=== PATIENT | female | born 1965 | race Caucasian/White ===

== ENCOUNTER 2022-06-22 09:29 | Outpatient (CLI) | payer OTHER, SELFPAY ==
[2022-06-22 23:02] LABS: Hemoglobin A1C 5.5 % (<5.7)
== END 2022-06-22 09:30 | disposition home or self-care (01) ==
LOC: ANHGOSHLAB 09:30
PROVIDERS: PCP Family Medicine; Visit Provider Family Medicine
DX: R73.01 Impaired fasting glucose (principal)
CPT/HCPCS: 36415; 83036

== ENCOUNTER → 2022-06-22 09:38 | Outpatient (CLI) | payer OTHER, SELFPAY ==
--- NOTE | ~2022-06-22 | XR_ITS ---
Right Hand Technique: PA, oblique, and lateral views were obtained. Clinical History: Effusion Findings: No acute fracture or dislocation is seen. Osseous alignment is anatomic. There is mild dege nerative change of the first CMC joint. Soft tissues are unremarkable. Impression: No fracture or dislocation. Mild degenerative change at the first CMC joint. Reviewed, dictated and finalized at location . E [employer] STRATEGIST Impression: No fracture or dislocation. Mild degenerative change at the first CMC joint.
== END ==
PROVIDERS: PCP Family Medicine; Visit Provider Family Medicine
DX: M25.441 Effusion, right hand (principal); M19.041 Primary osteoarthritis, right hand
CPT/HCPCS: 73130

== ENCOUNTER 2023-01-25 14:15 | Outpatient (CLI) | payer OTHER, SELFPAY ==
[2023-01-25 20:18] LABS: Vitamin D 25 Hydroxy 39.1 ng/mL
[2023-01-25 21:39] LABS: Hemoglobin A1C 5.6 % (<5.7)
== END 2023-01-25 14:16 | disposition home or self-care (01) ==
LOC: ANHGOSHLAB 14:16
PROVIDERS: PCP Family Medicine; Visit Provider Family Medicine
DX: R53.1 Weakness (principal); Z13.29 Encounter for screening for other suspected endocrine disorder; E53.8 Deficiency of other specified B group vitamins; E55.9 Vitamin D deficiency, unspecified; R73.01 Impaired fasting glucose
CPT/HCPCS: 36415; 82306; 82607; 83036; 84443

== ENCOUNTER 2023-03-27 01:20 | Day surgery (SDC) | payer OTHER, SELFPAY ==
[2023-03-15 09:05] VITALS: BMI 17.9
--- NOTE | 2023-03-23 14:09 | SUR.PREOP ---
Patient called regarding upcoming procedure. Message left on patient's voicemail regarding preop instructions, appointment times, and procedure prep.
[2023-03-27 08:11] VITALS: BP 126/67; PULSE 82; RESP 18; TEMP 36.3; O2SAT 99
[2023-03-27] MEDS: LACTATED RINGERS 1,000 ML 150 ML IV CONT (08:16)
--- NOTE | 2023-03-27 09:25 | PM.HPGS ---
History of Present Illness History of Present Illness Consent: Risks, benefits, and alternatives have been discussed and questions answered. Patient agrees to proceed with procedure. Chief complaint: neoplasm screening Narrative: Bette Ritchie is a 57 year old female here for first screening colonoscopy Review of Systems Constitutional: Constitutional: Denies headache(s) and Denies weakness Eyes: Eyes: Denies blurry vision ENT: Reports Normal hearing present, Denies headache(s) and Denies neck pain Cardiovascular: Cardiovascular: Denies chest pain and Denies dyspnea Respiratory: Respiratory: Denies dyspnea Gastrointestinal: Gastrointestinal: Reports no additional gastrointestinal complaints Genitourinary: Genitourinary: Denies dysuria Musculoskeletal: Musculoskeletal: Denies neck pain Integumentary/Breasts: Skin/Breast: Denies dry skin Neurologic: Reports Normal hearing present, Denies headache(s) and Denies weakness Psychiatric: Psychiatric: Denies anxiety Endocrine: Endocrine: Denies change in body appearance Hematologic/Lymphatic: Hematologic/Lymphatic: Denies easy bleeding Allergic/Immunologic: Allergic/Immunologic: Denies urticaria [facility] Past Medical History Medical History (Updated 03/27/23 @ 09:26 by Aron Dawkins MD) Colon cancer screening Dyslipidemia Surgical History Surgical History History of tubal ligation (~1989) History of vaginal delivery 1982 and 1984 Family History Family History Mother Hypertension Family history of Alzheimer's disease Family history of dementia Grandparent Family history of cardiovascular disease Father Family history of malignant neoplasm Social History Social History Smoking packs per day: 1 Smoking cigarettes per day: 20.0 Years smoked: 24 Smoking pack-years: 24.00 Smoking status: Current every day smoker Tobacco type: cigarettes Alcohol intake: current Drinks per week: 10 Alcohol use details: beer Substance use: never Substance use type: does not use Lack of Transportation: No Lack of Food: Never True Current Housing: I Have Housing Concerned About Future Housing: No Difficulty Paying Gas/Electric Bills: No Difficulty Paying for Meds: No Currently Unemployed: No Education: High School Diploma/GED Difficulty w/ Childcare or Family Care: No Living arrangements: with family Spiritual care concerns: No Meds Home Medications and Allergies Home Medications Medication Instructions Recorded Confirmed Type No Home Medications 03/15/23 03/15/23 History Allergies Allergy/AdvReac Type Severity Reaction Status Date / Time No Known Allergies Allergy Verified 03/27/23 08:10 Vital Signs Vital Signs - 24 hr 03/27/23 08:11 Temperature 97.3 F L Pulse Rate 82 Respiratory Rate 18 Blood Pressure 126/67 Pulse Oximetry 99 Oxygen Delivery Room Air Exam Const: General: comfortable and no acute distress HENMT: Face/Nose/Sinus: Normal nares present Eyes: General: appearance normal, both eyes and all related structures Neck: Neck: no JVD Resp: Auscultation: clear to auscultation bilaterally Cardio: Rate: regular rate Rhythm: regular rhythm GI: Inspection: non-distended GI Palp: Yes Soft to palpation Skin: General skin exam: normal color Neuro: General: gait normal Speech: normal speech Extrem: General: normal to inspection Psych: Mental Status: mental status grossly normal Assessment and Plan Assessment and plan (1) Colon cancer screening: Code(s): Z12.11 - Encounter for screening for malignant neoplasm of colon Status: Acute Assessment and Plan: colonoscopy
--- NOTE | 2023-03-27 09:30 | P.PNAN_ITS ---
Anes - Initial Pre Proc Eval Procedure: Operation Date: 03/27/23 09:30 Proposed Procedures p Screening Colonoscopy - Aron Dawkins MD Date/Time: 03/27/23 09:30 Surgeon: Aron Dawkins MD Pre Op Diagnosis: neoplasm screening Patient Data Age: 57 Gender: F Height: 1.6 m Weight: 44.3 kg Last Vital Signs Temp 97.3 F L 03/27/23 08:11 Pulse 82 03/27/23 08:11 Resp 18 03/27/23 08:11 BP 126/67 03/27/23 08:11 Pulse Ox 99 03/27/23 08:11 O2 Del Method Room Air 03/27/23 08:11 Allergies Allergy/AdvReac Type Severity Reaction Status Date / Time No Known Allergies Allergy Verified 03/27/23 08:10 Home Medications Medication Instructions Recorded Confirmed Type No Home Medications 03/15/23 03/15/23 History Patient hx anesthesia problems: none Family hx anesthesia problems: none Results Review: All pre-operative results and documents have been reviewed as part of the pre- operative evaluation. [facility] Past Medical History Medical History (Updated 03/27/23 @ 09:26 by Aron Dawkins MD) Colon cancer screening Dyslipidemia Surgical History Surgical History History of tubal ligation (~1989) History of vaginal delivery 1982 and 1984 Family History Family History Mother Hypertension Family history of Alzheimer's disease Family history of dementia Grandparent Family history of cardiovascular disease Father Family history of malignant neoplasm Social History Social History Smoking packs per day: 1 Smoking cigarettes per day: 20.0 Years smoked: 24 Smoking pack-years: 24.00 Smoking status: Current every day smoker Tobacco type: cigarettes Alcohol intake: current Drinks per week: 10 Alcohol use details: beer Substance use: never Substance use type: does not use Lack of Transportation: No Lack of Food: Never True Current Housing: I Have Housing Concerned About Future Housing: No Difficulty Paying Gas/Electric Bills: No Difficulty Paying for Meds: No Currently Unemployed: No Education: High School Diploma/GED Difficulty w/ Childcare or Family Care: No Living arrangements: with family Spiritual care concerns: No Anes - Eval Final PreProcedure Day of Procedure 03/27/23 09:30 Patient weight: normal Heart: regular rate and rhythm Lungs: clear to auscultation Airway: Mallampati scale class II Neurological: alert and oriented Last oral intake: >/= 8 hours ASA classification: II Emergent: no Anesthetic plan: proceed Anesthesia type and monitoring: general GIVS and standard monitoring Results Review: All pre-operative results and documents have been reviewed as part of the pre- operative evaluation. Informed Consent: The patient's anesthetic plan and its attendant risks and benefits were discussed with the patient/family/POA. Questions were solicited and answers provided to the satisfaction of the patient/family/POA.
[2023-03-27 09:50] VITALS: BP 92/58; PULSE 66; RESP 20; O2SAT 97
[2023-03-27 10:00] VITALS: BP 102/60; PULSE 60; RESP 18; O2SAT 100
[2023-03-27 10:10] VITALS: BP 121/68; PULSE 54; RESP 18; O2SAT 100
== END 2023-03-27 10:18 | disposition home or self-care (01) ==
PROVIDERS: PCP Family Medicine; Visit Provider Internal Medicine Gastroenterology
PROC: 0DJD8ZZ Inspection of Lower Intestinal Tract, Via Natural or Artificial Opening Endoscopic (ICD-10-PCS; CPT 45378; principal; 2023-03-27 09:30)
DX: Z12.11 Encounter for screening for malignant neoplasm of colon (principal); D12.3 Benign neoplasm of transverse colon; D12.0 Benign neoplasm of cecum; D12.2 Benign neoplasm of ascending colon; K57.30 Diverticulosis of large intestine without perforation or abscess without bleeding; K64.8 Other hemorrhoids; F17.210 Nicotine dependence, cigarettes, uncomplicated
CPT/HCPCS: 45385; 88305; J2704; J7120

== ENCOUNTER 2024-03-07 14:17 | Outpatient (CLI) | payer OTHER, SELFPAY ==
--- NOTE | ~2024-03-07 | DEXA_ITS ---
Bone Density Report Name: PRERNA COTTON Age: 58 Sex: Female Ethnicity: White Date of : 1965 Indication: postmenopausal; screening for osteoporosis; height loss; Referring Provider: JAMIE, GABRIELA Pritchard Study: Bone densitometry was performed. Exam Date: March 07, 2024 Accession number: [id number] Bone Density: Region BMD T-score Z-score Classification AP Spine(L1-L4) 0.849 -1.8 -0.4 Osteopenia Femoral Neck (Left) 0.643 -1.9 -0.6 Osteopenia Total Hip (Left) 0.883 -0.5 0.4 Normal Femoral Neck (Right) 0.581 -2.4 -1.1 Osteopenia Total Hip (Right) 0.796 -1.2 -0.3 Osteopenia Total Hip Mean 0.840 -0.9 0.1 Normal World Health Organization criteria for BMD impression classify patients as: Normal (T-score at or above -1.0), Osteopenia (T-score between -1.0 and -2.5), or Osteoporosis (T-score at or below -2.5). 10-year Fracture Risk(1): Major Osteoporotic Fracture 9.9% Hip Fracture 2.8% Reported Risk Factors: [place] (), Neck BMD=0.581, BMI=19.4, smoking (1) FRAX(R) Version 3.08. Fracture probability calculated for an untreated patient. Fracture probability may be lower if the patient has received treatment. Clinical Information Provided by Patient: Smokes Has used the following medications: Vitamin D Patient maximum height was 63 Menopause Age: 47 No regular weight bearing exercise Does not regularly consume dairy products Drinks caffeinated beverages Onset of menses at age 12 Number of children 2 Impression: The patient has low bone mass, based on the Right Femoral Neck T-score. The patient has an estimated ten-year risk of hip fracture of 2.8% and an estimated ten-year risk of major fracture of 9.9%, based on the WHO FRAX algorithm. The patient has risk factors, including: smoking. Discussion: BONE DENSITY IS LOW AT ONE OR MORE SKELETAL SITES. This patient's lowest T-score is low at one or more skeletal sites. It meets the World Health Organization's (WHO) criteria for ?low bone mass? (T-score between -1.0 and -2.5). The patient's 10-year risk of fracture as calculated by FRAX is less than the threshold where pharmacological therapy is recommended by the National Osteoporosis Foundation (NOF). However, all treatment decisions require clinical judgment and consideration of individual patient factors, including patient preferences, comorbidities, previous drug use, risk factors not captured in the FRAX model (e.g., frailty, falls, vitamin D deficiency, increased bone turnover, interval significant decline in bone density) and possible under or overestimation of fracture risk by FRAX. The patient should follow a healthful lifestyle (good nutrition with adequate calcium and vitamin D, and appropriate weight-bearing exercise). Follow-Up: Consider repeating this study in 2 to 3 years to reassess this patient's status, or sooner if there is some new clinical indication. Reported by: MARCIE on 03/07/2024 2:51:00 PM. Reviewed, dictated and finalized at location AJudie RYDER
== END 2024-03-07 14:18 | disposition home or self-care (01) ==
LOC: ANHIMG 14:22
PROVIDERS: PCP Family Medicine; Visit Provider Nurse Practitioner
DX: M85.89 Other specified disorders of bone density and structure, multiple sites (principal); Z78.0 Asymptomatic menopausal state; Z13.820 Encounter for screening for osteoporosis
CPT/HCPCS: 77080

== ENCOUNTER 2024-12-09 15:48 | Outpatient (CLI) | payer OTHER, SELFPAY ==
--- NOTE | ~2024-12-09 | XR_ITS ---
XR knee LT min 4V 12/09/2024 16:28 Indication: Left knee pain for one week Procedure: 4 views left knee Comparison: No prior studies for comparison. Findings: Small joint effusion. Mild osteoarthritis of the left patellofemoral compartment. No fracture, subluxation or dislocation. There is a questionable osteochondral defect of the distal aspect of the femur along the inferior margin of the patellofemoral compartment on the lateral view. Impression: 1: Possible osteochondral defect distal aspect of the femur anteriorly. Reviewed, dictated and finalized at location O. Impression: 1: Possible osteochondral defect distal aspect of the femur anteriorly.
== END 2024-12-09 15:49 | disposition home or self-care (01) ==
PROVIDERS: PCP Family Medicine; Visit Provider Family Medicine
DX: M25.562 Pain in left knee (principal)
CPT/HCPCS: 73564

== ENCOUNTER 2025-02-17 09:18 | Outpatient (CLI) | payer OTHER, SELFPAY ==
--- NOTE | ~2025-02-17 | MR_ITS ---
EXAMINATION: MR knee LT wo con DATE: 02/17/2025 09:51 INDICATION: Anterior left knee pain. Osteochondral defect at the distal left femur. TECHNIQUE: Magnetic resonance imaging (MRI) of the left knee was performed without intravenous contrast. Sequences included coronal PD-weighted FSE, coronal PD-weighted FS FSE, sagittal T2-weighted FSE, sagittal PD-weighted FS FSE and axial PD weighted fat saturated FSE. COMPARISON: None. FINDINGS: Medial compartment: Medial meniscus is normal. Again seen is an osteochondral lesion along the lateral side of the anterior weightbearing medial femoral condyle with displacement of the osteochondral fragment leaving a 6 mm deep defect involving the medial two thirds of the anterior weightbearing medial femoral condyle. The defect measures 2.1 cm AP and 1.6 cm medial to lateral. The loose fragment which measures 1.8 x 1.3 x 0.4 cm is positioned in the recess anterior to the intercondylar notch positioned between the tibial footplate of the anterior cruciate ligament and the anterior intermeniscal ligament. Partial-thickness chondral ulceration and fissuring along the anterior aspect of the medial tibial plateau with mild underlying subarticular edema-like signal change. Lateral compartment: Lateral meniscus is normal. Articular cartilage is normal. Patellofemoral compartment: Articular cartilage is normal. Ligaments and tendons: Anterior and posterior cruciate ligaments are normal. The medial collateral ligament and fibular collateral ligament complex are normal. The extensor mechanism is normal. The visualized medial and lateral hamstring tendons as well as the iliotibial band are normal. Fluid: Minimal left knee joint effusion. There are few small loose bodies within a small Pope's cyst which measures 3.5 x 2.0 x 1.4 cm. Osseous/other: Aside from the displaced osteochondral fragment there are no other fractures or pathologic marrow replacing process. IMPRESSION: 1. 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 2. Mild osteoarthritis at the medial compartment with small region of high-grade chondromalacia along the anterior aspect medial tibial plateau. 3. Minimal left knee joint effusion and small Pope's cyst. Reviewed, dictated and finalized at location A. KSHAFT BALANCER IMPRESSION: 1. Chronic osteochondritis dissecans with displacement of a relatively large os teochondral fragment arising from the medial aspect of the anterior weightbeari ng medial femoral condyle with a fragment position anterior to the intercondyla r notch. 2. Mild osteoarthritis at the medial compartment with small region of high-grad e chondromalacia along the anterior aspect medial tibial plateau. 3. Minimal left knee joint effusion and small Pope's cyst.
== END 2025-02-17 09:19 | disposition home or self-care (01) ==
LOC: MICIMG 09:19
PROVIDERS: PCP Family Medicine; Visit Provider Physician Assistant Surgical
DX: M95.8 Other specified acquired deformities of musculoskeletal system (principal); M93.262 Osteochondritis dissecans, left knee; M17.12 Unilateral primary osteoarthritis, left knee; M94.262 Chondromalacia, left knee
CPT/HCPCS: 73721

== ENCOUNTER 2025-03-24 10:48 | Outpatient (CLI) | payer OTHER, SELFPAY ==
--- NOTE | 2025-03-24 11:44 | ECG_ITS ---
Test Date: 2025-03-24 11:51:09 Measurements Intervals [place] Rate: 92 P: 82 MI: 128 QRS: 37 QRSD: 90 T: 48 QT: 353 QTc: 437 Interpretive Statements SINUS RHYTHM POSSIBLE LEFT ATRIAL ENLARGEMENT INCOMPLETE RIGHT BUNDLE BRANCH BLOCK BASELINE ARTIFACT- I, II, III, AVR, AVL, AVF, V1-V6 BORDERLINE ECG No previous ECG available for comparison Electronically Signed On 03-24-2025 12:04:47 MENTAL HEALTH AIDE by Quang Palomares D.O.
== END 2025-03-24 10:49 | disposition home or self-care (01) ==
LOC: ANHSURGERY 11:19
PROVIDERS: PCP Family Medicine; Visit Provider Orthopaedic Surgery
DX: I10 Essential (primary) hypertension (principal); Z01.818 Encounter for other preprocedural examination; I45.10 Unspecified right bundle-branch block
CPT/HCPCS: 93005

== ENCOUNTER 2025-03-26 01:39 | Day surgery (SDC) | payer OTHER, SELFPAY ==
[2025-03-23 09:32] VITALS: BMI 22.6
--- NOTE | 2025-03-23 09:39 | PC.NURSE ---
[facility] has started construction of its new state of the art ER which will open Spring 2026. With this, we anticipate parking may be a challenge for some our surgical patients and families. Parking spaces are limited but are available for all Surgical, obstetrics, and ER patients sharing this lot. If you arrive and find you are having a hard time finding a parking space, please note that we understand the challenges, please drive around the hospital and park near Hospital Entrance 1. When you enter this entrance, you can ask a volunteer to direct or take you back to the surgical waiting area to check in. We appreciate everyone?s understanding of these expected challenges while we build for your future. Report to the Outpatient Waiting Room, entrance under the green pavilion located off [address], at time _1130_ on date __03/26/25. Planned Procedure Time: 1330_.? Time changes happen often and if your time is changed the preop area will call you the afternoon before. - You and your visitor will be asked to self-screen and do not enter if you have any COVID symptoms. Please call surgeon if you need to reschedule. - A mask is optional within the hospital at this time. Patients may have clear liquids (water, carbonated beverages, clear teas, apple juice) until 3 hours prior to surgery with a maximum of 20 ounces. - No food from midnight until time of surgery and no smoking, or chewing tobacco (or any form of nicotine). No chewing gum, candy or mints. Take only the following medications with a SIP of water on the morning of surgery: ____AMLODIPINE DO NOT STOP ANY OF YOUR OTHER PRESCRIPTION MEDICATIONS PRIOR TO SURGERY EXCEPT THE FOLLOWING Hold all vitamins and supplements for 3 days per anesthesiologist. Medications to discontinue per physician Date to take last dose Please no make-up, nail kiswahili, hairspray, perfume, deodorant, or body powder the day of surgery.? No jewelry (including any body piercings) or valuables the day of surgery, leave them at home.? Please take a shower or bath the night before, or the morning of, surgery with an antibacterial soap.? Wear comfortable, loose fitting clothing.? Children are encouraged to wear pajamas. - Jewelry must be removed prior to entering the operating room.? Rings and piercings that are not removed may be cut off. - The hospital will not accept responsibility for valuables.? - Please leave all valuables, including medications, at home the day of surgery. If you are going home after surgery, a licensed minibus driver must drive you home.? - NO public transportation without another adult if you receive anesthesia. - We recommend that an adult stay with you for 24 hours following discharge. - We also recommend that you do not drive, make important decision, drink alcoholic beverages, or take any drugs that were not prescribed by your health care provider for at least 24 hours after your discharge time. For Pediatric surgeries, we recommend two adults accompany the child home. Follow any additional instructions given to you from your surgeon. Telephone instructions given to PATIENT_and asked if any additional questions and then verbalized understanding. Patient advised to call surgeon office or pre surgery nurse liaison [phone] if any additional questions.
[2025-03-26] VITALS (7 sets, daily range): BP systolic 123–140; BP diastolic 56–79; PULSE 76–83; RESP 12–20; TEMP 36.4–36.9; O2SAT 96–100; BMI 21.9
--- OUTSIDE RECORDS SUMMARY | 2025-03-26 01:41 | XMS_ITS | Data Portability ---
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 Patient will come back in a year unless there are new symptoms. Not available 09/14/2022 11:41:57 10/23/2023 10/23/2023 Annual gynecological exam performed. Patient will come back in a year unless there are new symptoms. [email or web address] Not available 10/23/2023 11:49:33 Plan of Treatment Reminders Order Date Submit Date Provider Last Modified By Organization Details Last Modified Time Details Appointments None recorded. Lab None recorded. Referral None recorded. Procedures None recorded. Surgeries None recorded. Imaging MAMMO, screening, digital, bilateral 2023 024 [facility], [address], [place], [address], 5 05:01:18 DEXA, axial skeleton + vertebral fracture assessment 2023 024 [facility], [address], [place], [address], 4 13:40:37 MAMMO, screening, bilateral 2022 023 [facility], [address], [address], [place], [address], 3 05:01:16 Medication Orders estradiol 0.01% (0.1 mg/gram) vaginal cream 2023 024 CLARA [facility]18886, [address], [place], [id number], 4 14:09:11 Vagifem 10 mcg vaginal tablet 2022 023 [email or web address] [facility] #05666, [address], [place], [id number], 4 14:05:22 Premarin 0.625 mg/gram vaginal cream [email or web address] [place] [address] [email or web address]691, [address], [place], [id number], 3 10:22:42 Patient TargetsNo targets recorded. Patient InstructionsNo instructions recorded. Reason for Referral None Reported. 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 Atrop hic cell mariluz shepherd. Elect rosalind reddy ave d by José Manuel Montez CT on 023 at 3:40 PM ----- ----- ----- ----- ----- ----- ----- ----- ----- ----- ----- ----- ----- ----- ----- ----- ----- ---- HPV RESUL TS: HPV mRNA E6/E7 : No HPV mRNA Detec jameson NOTE: This high risk HPV mRNA assay detec ts fourt een high- risk HPV types (16, 18, 31, 33, 35, 39, 45, 51, 52, 56, 58, 59, 66, 68) witho ut diffe renti ation . COMME NT: This speci men was revie wed by a Cytot echno logis t and/o r Patho logis t (as indic ated in this repor t) after evalu ation using the Thinp rep Imagi ng Syste m. CLINI TRINI INFOR MATIO N: Menst rual Statu s: LMP (if appli cable ): Clini trini Histo ry/Pr eviou s Pap: Type of Neopl ila (if appli cable ): Signi fican t Clini trini Findi ngs: Other Histo ry: Hormo álvaro (if appli cable ): PAP EDUCA MARIOLA L NOTE: The Pap Test is a scree luis test with an inher ent false negat mari rate. Liqui d-bas ed sampl ing may decre ase, but will not elimi césar, false negat mari resul ts. A negat mari resul t does not precl ude the prese nce and/o r devel opmen t of disea se, since the prese nce of abnor mal cells in the sampl e depen ds on the locat ion of the lesio n and sampl ing techn ique. Karan nued regul ar scree luis is the best metho d of cance r preve ntion . If repor jameson cytol ogic findi ng do not corre late with physi trini and/o r histo rical findi ngs, furth er inves tigat ion is recom hilario d, as clini amie marxed. Not Available [facility] (Lab) [address], [place], [address], 09/18/2022 16:44:38 03/18/20 24 03/07/2024 DEXA, axial skele ton + verte bral fract ure asses sment No observ ation record ed. [facility] [address], [place], [address], 03/20/2024 17:52:10 Result Notes None recorded. Procedures Surgical History Date Name Laterality Status Provider Name and Address Organization Details Recorded Time 3 Date of Last Pap Smear completed [facility] 10/31/2022 11:10:21 2 Tubal Ligation completed [facility] 09/14/2022 11:46:09 Imaging Results None recorded. Procedure Notes None recorded. Medical Equipment None Reported. Allergies No known drug allergies Medications Name Sig Start Date Stop Date Status Note LastModified by Organization Details LastModified Time ciclopirox 8 % topical solution APPLY ONCE DAILY TO AFFECTED NAILS. REMOVE ONCE A WEEK WITH INDONESIAN REMOVER. active Not Available Not Available No t Available estradiol 0.01% (0.1 mg/gram) vaginal cream Insert 1g vaginally at bedtime 2 times per week 2023 active Not Available Not Available Not Avai lable Premarin 0.625 mg/gram vaginal cream PLEASE SEE ATTACHED FOR DETAILED DIRECTION S 12/21 completed Not Available Not Available Not Available estradiol 10 mcg vaginal tablet INSERT 1 TABLET VAGINALLY TWICE A WEEK AT BEDTIME FOR ERI CE 10/22 completed Not Available Not Available Not Available Vitals Date Recorded Systolic And Diastolic Provider Name and Address Organization Details Last Updated DateTime 09/14/2022 122/69 mm[Hg] Brandy Deleon, [facility] [address], [place], [address], [facility] 09/14/2022 12:11:09 Date Recorded Body height Body mass index (BMI) Body weight Provider Name and Address Organization Details Last Updated DateTime 09/14/2022 160.02 cm 18.2 kg/m2 68865.01 g [facility] 09/14/2022 11:42:43 Date Recorded Body height Body mass index (BMI) Body weight Systolic And Diastolic Provider Name and Address Organization Details Last Updated DateTime 10/23/2023 160.02 cm 18.2 kg/m2 30258.01 g 133/71 mm[Hg] Kelsea Kennedyman [facility] 10/23/2023 11:53:14 Date Recorded Systolic And Diastolic Provider Name and Address Organization Details Last Updated DateTime 10/31/2022 122/82 mm[Hg] Brandy Deleon, [facility]- [address], [place], [address], [facility] 10/31/2022 18:13:14 Date Recorded Body height Body mass index (BMI) Body weight Provider Name and Address Organization Details Last Updated DateTime 10/31/2022 160.02 cm 17.9 kg/m2 24013.83 g Cristel [facility] 10/31/2022 11:09:59 Date Recorded Systolic And Diastolic Provider Name and Address Organization Details Last Updated DateTime 12/21/2022 124/71 mm[Hg] Brandy Deleon [facility]- [address], [place], [address], [facility] 12/21/2022 10:30:25 Date Recorded Body height Body mass index (BMI) Body weight Provider Name and Address Organization Details Last Updated DateTime 12/21/2022 160.02 cm 17.9 kg/m2 00539.83 g Cristel Mckinneyer [facility] 12/21/2022 10:22:24 Social History Question Answer Notes LastModified by Organizat ion Details LastModified Time Tobacco Smoking Status Current Every Day Smoker [facility] 12/21/2022 10:16:34 How Many Years Have You Consumed Alcohol? 37 Information not available 09/14/2022 Are You Blind Or Do You Have Difficulty Seeing? No Information not available 09/14/2022 What Is Your Level Of Caffeine Consumption? Moderate Information not available 09/14/2022 How Much Tobacco Do You Chew? None Information not available 09/14/2022 In The 14 Days Before Symptom Onset, Have You Had Close Contact With A Laboratory-confir med COVID-19 While That Case Was Ill? No Information not available 09/14/2022 In The 14 Days Before Symptom Onset, Have You Had Close Contact With A Person Who Is Under Investigation For COVID-19 While That Person Was Ill? No Information not available 09/14/2022 Have You Been To An Area Known To Be High Risk For COVID-19? No Information not available 09/14/2022 Are You Deaf Or Do You Have Serious Difficulty Hearing? No Information not available 09/14/2022 What Type Of Diet Are You Following? CARBOHYDRATE Information not available 09/14/2022 What Is The Highest Grade Or Level Of School You Have Completed Or The Highest Degree You Have Received? [id number] Information not available 09/14/2022 Are There Any Guns Present In Your Home? Yes Information not available 09/14/2022 Do You Use Protection During Sex? No Information not available 09/14/2022 Do You Use Your Seat Belt Or Car Seat Routinely? Yes Information not available 09/14/2022 Do You Have Smoke And Carbon Monoxide Detectors In Your Home? Yes Information not available 09/14/2022 At What Age Did You Start Smoking Tobacco? 33 Information not available 09/14/2022 How Much Tobacco Do You Smoke? 1 PPD Information not available 09/14/2022 Do You Use Sunscreen Routinely? No Information not available 09/14/2022 How Many Years Have You Smoked Tobacco? 24 Information not available 09/14/2022 Have You Used IV Drugs? No Information not available 09/14/2022 Sex: Unknown Functional Status Question Answer Note LastModified by Organizat ion Details LastModified Time Do you use any illicit or recreational drugs? No Information not available 09/14/2022 What is your level of alcohol consumption? Moderate Information not available 09/14/2022 Are you able to walk independently without assistance or assistive devices? 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 None Information not available 09/14/2022 Mental Status Question Answer Note LastModified by Organization D etails LastModified Time Do you feel stressed (tense, restless, nervous, or anxious, or unable to sleep at night)? [id number] Information not available 09/14/2022 Family History Relationship Description Onset Age of this Age Resolved Age Notes LastModified by Organization Details LastModified Time Paternal Grandmother Diabetes mellitus Not available 2022 11:42:57 Paternal Aunt Diabetes mellitus Not available 2022 11:42:57 Paternal Uncle Diabetes mellitus Not available 2022 11:42:57 Paternal Grandfather Diabetes mellitus Not available 2022 11:42:57 Medical History Condition Response Allergies (Food, seasonal, environmental ) N Other N Breast Cancer N Drug/Latex Allergies/Reactions N Blood Transfusion N Dermatologic Disorders N Lung Disease N Defects or Inherited Disease N Breast Problem N Gestational Diabetes N Hematologic disorders N Anesthesia Complications N History of STI N Deep Vein Thrombosis N Polycystic ovary syndrome N Anxiety Disorder N Autoimmune disease N Arthritis Y Infertility N Polyps N Acid Reflux (GERD) N History of abnormal pap N Cancer N Stroke N Varicosities N Neurologic/Epilepsy N Endometriosis N High Cholesterol N Headaches N Fibromyalgia N Kidney Disease N Heart Problems N Kidney or Bladder Problems N Thyroid Problems N GI Problems N Eating Disorder N Anemia N Art (IVF or FET) N Psychiatric Illness N Ovarian Cancer N Diabetes N Pulmonary (TB, Asthma) N Hepatitis/Liver Disease N No Past Medical History N Eczema N Urinary Tract Infection N Abuse/Domestic Violence N Asthma N Trauma/Violence N Depression/ depression N Heart Disease N Pre-Eclampsia N Hypertension N Osteoporosis N Thrombophilias N Gynecological History Statement/Question Response Abnormal Pap N Date of Last Mammogram On BCP's at Conception? N N STIs/STDs N HPV Vaccine N Colposcopy Current Control Method Menopause Age at First Child 19 If Post Menopausal, Age at Menopause 47 Date of Last Colonoscopy Sexually Active? Y Menses Monthly N Date of DEXA bone scan Age of first menstrual cycle 12 Date of Last Pap Smear 09/14/2022 Sexual Problems? N LMP Unknown N Obstetrics History GPAL:G 2 P 2 0 0 2 Type Value Full Term 2 Living 2 Total 2 Past Encounters Encounter ID Performer Location Encounter Start Date Encounter Closed Date Diagnosis/Indication Diagnosis SNOMED-CT Code Diagnosis ICD10 Code Diagnosis IMO Codes Diagnosis Note [id number] Brandy Deleon [facility] [address] [address] 09/14/2022 11:31:59 09/14/2022 12:17:22 Gynecologic examination 70238923 Z01.419 Take Calcium with Vitamin D 12-1500mg daily. Do monthly self breast exams. It is advised to get annual flu shot in the fall and she could obtain at [facility] or [facility]. If you haven't received the Tdap vaccine in the last 10 years you should obtain one as well. Have mammogram yearly, bone density every 2-3 years and colonoscop y every 5-10 years depending on findings and history. Engage in daily exercise of low impact aerobic exercise 45-60 minutes 4-5 times weekly. Avoid tobacco and illicit drugs as well as using moderation with alcohol intake less than 1-2 8 oz beverages daily. This lifestyle behavior pattern will lead to less health conditions and longer life span. If BMI greater than 25 weight watchers or dietary consult advised. Questions have been answered. Patient appears to understand instructio ns, but if you have any further questions call or respond to this email Pap/hpv sent STD Screen declined Genetic Screen discussed Colon Screen PCP Dexa Screen PCP Routine Labs PCP Screening mammography [address] anderson on intercourse 029248166 N89.8 Counseled on the following: Vaginal Dryness: Bothersome symptoms of the vagina and vulva (outer lips of the vagina) increase during and after the menopause transition or may start several years after menopause. The decrease in estrogen with menopause is a major contributo r to vaginal dryness, itching, burning, discomfort , and pain during intercours e or other sexual activity. Vaginal atrophy is the medical term that describes these changes. The genitourin abhi syndrome of menopause includes bothersome vaginal atrophy often combined with urinary symptoms. Vaginal atrophy may significan tly affect your quality of life, sexual satisfacti on, and relationsh ip with your partner. Unlike hot flashes, which generally improve with time, vaginal symptoms typically worsen with time because of aging and a prolonged lack of estrogen. Vaginal estrogen therapy An effective and safe treatment, low-dose local estrogen is applied directly to the vagina to restore vaginal health and relieve vaginal dryness and discomfort with sexual activity. Improvemen ts usually occur within a few weeks, although complete relief may take several months. This even may be an option for women with a history of breast or uterine cancer but only after careful considerat ion of risks and benefits with a healthcare provider and oncologist . Government -approved low-dose vaginal estrogen products are available by prescripti on as vaginal creams (used two or three nights/wee k), a vaginal estradiol tablet (used twice/week ), and an estradiol vaginal ring (changed every 3 months). All are highly effective. You may wish to try several different forms and choose the one you prefer. Standard doses of estrogen therapy provided to treat hot flashes also treat vaginal dryness, although some women still benefit from additional low-dose vaginal estrogen treatment. If only vaginal symptoms are present, low doses of estrogen applied to the vagina are recommende d. Resources: https://kavon w.Beaker e.org/docs /default-s ource/for- women/mn-v aginal-dry ness.pdf Counseled on medication R/B's, Most common side effects, & use. All questions were answered to patient satisfacti on. RTO x 8wks med checkCall if Rx isn't affordable .Would need to know what is on formulary [id number] [facility] [address] [address] 10/31/2022 11:06:35 11/01/2022 11:05:14 Dyspareunia 29148847 N94.10 Here today for med check of premarin cream.Does feel some improvemen t but feels it's a bit messy.Woul d like to trial the vaginal tab & also discussed adding vegetable based moisturize r daily.RTO x 2mos med check Counseled on medication R/B's, Most common side effects, & use. All questions were answered to patient satisfacti on. Time spent in visit is a total of 15 mins with at least 50% of visit consisting of counseling and review of plan of care. [id number] Brandy Deleon , [facility] [address],[place] [address] 12/21/2022 10:16:28 12/21/2022 10:34:16 Dyspareunia [id number] N94.10 Patient is here today for a medicaton check of vagifem. She voices goals of therapy have been met with use of this therapy. She denies neg side effects. She is eating, drinking, sleeping well; moods are stable & no aub. Wishes to continue this method of therapy. Appropriat e to continue this medication . Time spent in visit is a total of 15 mins with at least 50% of visit consisting of counseling and review of plan of care. [id number] Nat Sutherland JIN [place] [address],[place] [address] 10/23/2023 11:47:36 10/23/2023 14:21:43 Gynecologic examination 44234021 Z01.419 WWEpostmen opausalpap UTD, paps Q3-5 yrs per asccp guidelines unless otherwise indicatedm ammogram order givencolon oscopy UTDdexa order givensmoki ng cessation encouraged routine labs PCP Do monthly self breast exams.It is advised to get annual flu shot in the fall and she could obtain at local pharmacy. If you haven't received the Tdap vaccine in the last 10 years you should obtain one as well.Have mammogram yearly, bone density every 2-3 years and stay up to date on colon cancer screening. Engage in regular exercise. Avoid tobacco and illicit drugs. This lifestyle behavior pattern will lead to less health conditions and longer life span. If BMI greater than 25 dietary consult advised.Qu estions have been answered. Patient appears to understand instructio ns, but if you have any further questions call or respond to this email Screening for osteoporosis 181704884 Z13.820 Screening for malignant neoplasm of breast 136291668 Z12.39 Vaginal dryness 53321845 N89.8 would like to switch back to the cream vs tabletsrx sent, r/b/a reviewed Health Concerns Section Related Observation LastModified by Organization Detai ls LastModified Time None Recorded Concern Status LastModified by Organization Details LastModified Time None Recorded Advance Directives Directive None Recorded Payers Insurance Date Sequence Insurance Name Policy Number Policy Brito Covered Member ID Brito Member ID Guarantor Name 10/22/2023 1 [employer] [id number] [address] [place] Erma [id number] Bette Ritchie Notes Date Note Type Note Provider Name and Address Organization Details Recorded Time 3 text/html 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 For vaginal bleeding, patient reportshistory of menopause having occurredandno history of post menopausal bleeding. For urinary symptoms, patient reportsno hematuria,no incontinence,no nocturia, andno urinary frequency. For vulva, patient reportsno genital lesionandno vulvar atrophy. For vagina, patient reportsnormal vaginal dischargeandno vaginal atrophy.Breast symptomsFor breast, patient reportsno breast lump,no nipple discharge, andno breast pain.Psychological symptomsFor sexual complaints, patient reportsno sexual complaints. For psychological symptoms, patient reportsno depressionandno anxiety.Preventative measuresFor preventive measures, patient reportsencourage regular mammograms starting age 40,encourage self breast examination,encourage regular exercise,encourage no tobacco use,needs to schedule mammogram, andhistory of recent colonoscopy. Brandy Deleon, JIN- [address], [place], [address], [facility] 09/14/2022 12:12:32 3 text/html ROS as noted in the HPI Here today for medication check of Premarin. Brandy Deleon [facility]- [address], [place], [address], [facility] 10/31/2022 18:14:02 3 text/html ROS as noted in the HPI Here today for medication check of vagifem for postmenopausal dyspareunia. [facility]- [address], [place], [address], [facility] 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 For vaginal bleeding, patient reportshistory of menopause having occurredandno history of post menopausal bleeding. For urinary symptoms, patient reportsno hematuria,no incontinence,no nocturia, andno urinary frequency. For vulva, patient reportsno genital lesionandno vulvar atrophy. For vagina, patient reportsnormal vaginal dischargeandno vaginal atrophy.Breast symptomsFor breast, patient reportsno breast lump,no nipple discharge, andno breast pain.Psychological symptomsFor sexual complaints, patient reportsno sexual complaints. For psychological symptoms, patient reportsno depressionandno anxiety.Preventative measuresFor preventive measures, patient reportsencourage regular mammograms starting age 40,encourage self breast examination, andencourage regular exercise.58yo WWElast pap 09/2022 : nilm, HPV (-)normal pap hxmammogram last olonoscopy ostmenopause since 47dexa - none yettobacco smoker using vagifem tablets, does not feel as if they are working as well as the cream did previously [facility] [address], [place], [address], [facility] 10/23/2023 14:10:37 OBGyn Episode Ob Episode Information Episode Created Date Number of Fetuses Patient Bloodtype Patient rh Status Prepregnancy Weight lbs Domestic Partner Domestic Partner Phone Father Name System Administration Advisor Status 09/15/19 23 1 CLOSED Fetus Data First Name Last Name Admitted to NICU Weight (g) Sex Living Outcome Pediatric Complications Fetus ID Race Codes Race Delivery Type 3798.83 3 F Full Term Vaginal Delivery Jin Calculation Initial Jin Date Initial Exam Date Initial Exam Provider Initial Ultrasound Date Last Menstrual Period Date Ultra Sound Weeks Gestation 0 Eighteen To Twenty Week Jin Update Ultra Sound Date Fundal Height At Umbil Quickening Date Ultra Sound Latest Weeks Gestation Final Jin Confirmed By Final Jin Confirmed Date Final Jin Date Ultra Sound Latest Days Gestation 0 0 Menstrual History Last Menstrual Date Menses Monthly On Bcp Conception Prior Menses Frequency Hcg Plus Date Menarche Onset Age Delivery Information Delivery Date Delivery Type Labor Anesthesia Weeks Gestation Incision Type Labor Labor Length Hrs Delivered By Post Complications Tubal Sterilization Discharge Date Comments 8 42 Discharge Information Feeding Method Contraceptive Method Maternal HG B and HCT Levels Ob Episode Information Episode Created Date Number of Fetuses Patient Bloodtype Patient rh Status Prepregnancy Weight lbs Domestic Partner Domestic Partner Phone Father Name System Administration Advisor Status 09/15/19 23 1 CLOSED Fetus Data First Name Last Name Admitted to NICU Weight (g) Sex Living Outcome Pediatric Complications Fetus ID Race Codes Race Delivery Type 3005.04 7 F Full Term Vaginal Delivery Jin Calculation Initial Jin Date Initial Exam Date Initial Exam Provider Initial Ultrasound Date Last Menstrual Period Date Ultra Sound Weeks Gestation 0 Eighteen To Twenty Week Jin Update Ultra Sound Date Fundal Height At Umbil Quickening Date Ultra Sound Latest Weeks Gestation Final Jin Confirmed By Final Jin Confirmed Date Final Jin Date Ultra Sound Latest Days Gestation 0 0 Menstrual History Last Menstrual Date Menses Monthly On Bcp Conception Prior Menses Frequency Hcg Plus Date Menarche Onset Age Delivery Information Delivery Date Delivery Type Labor Anesthesia Weeks Gestation Incision Type Labor Labor Length Hrs Delivered By Post Complications Tubal Sterilization Discharge Date Comments 5 40 Discharge Information Feeding Method Contraceptive Method Maternal HG B and HCT Levels
--- OUTSIDE RECORDS SUMMARY | 2025-03-26 01:41 | XMS_ITS | Clinical Summary ---
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 Active Glucosamine 500 MG CapIndications: Arthritis Take 1,500 mg by mouth daily. Indications: Arthritis Active cefdinir 300 MG Cap capsuleIndicati ons:Acute recurrent frontal sinusitis Take 1 capsule (300 mg total) by mouth 2 (two) times daily. 20 capsule 0 Active Active Problems Problem Noted Date Diagnosed Date Fever, unspecified fever cause 04/12/2022 Acute recurrent frontal sinusitis 03/12/2020 Family History Medical History Relation Comments Cancer Father Stroke Mother Relation Status Comments Father Mother Social History Tobacco Use Types Packs/Day Years Used Date Smoking Tobacco: Every Day Cigarettes 1 20 Smokeless Tobacco: Never Tobacco Cessation:Ready to Q uit: No; Counseling Given: Yes Alcohol Use Standard Drinks/Week Comments Yes 16.7 (1 standard drink = 0.6 oz pure alcohol) Comments No Sex and Gender Information Value Date Recorded Sex Assigned at Not on file Legal Sex Female 6:27 PM CDT Gender Identity Not on file Sexual Orientation Not on file Last Filed Vital Signs Vital Sign Reading Time Taken Comments Blood Pressure 138/74 04/12/2022 8:25 AM DIRECTOR EXPERIMENTAL MEDICINE Pulse 95 04/12/2022 8:25 AM DIRECTOR EXPERIMENTAL MEDICINE Temperature 36.9 C (98.4 F) 04/12/2022 8:25 AM DIRECTOR EXPERIMENTAL MEDICINE Respiratory Rate 19 04/12/2022 8:25 AM DIRECTOR EXPERIMENTAL MEDICINE Oxygen Saturation 99% 04/12/2022 8:25 AM DIRECTOR EXPERIMENTAL MEDICINE Inhaled Oxygen Concentration - - Weight 48.1 kg (106 lb) 04/12/2022 8:25 AM DIRECTOR EXPERIMENTAL MEDICINE Height 160 cm (5' 3) 04/12/2022 8:25 AM DIRECTOR EXPERIMENTAL MEDICINE Body Mass Index 18.78 04/12/2022 8:25 AM DIRECTOR EXPERIMENTAL MEDICINE Plan of Treatment Health Maintenance Due Date Last Done Comments Cervical Cancer Screening Pa p Smear (Age 30 to 64) Every 3 Years 1964 Colorectal Cancer Screening Colonoscopy (10 Years) 1964 Annual Physical 1967 Hepatitis C 1982 Pneumococcal Vaccine: 50+ Ye ars (1 of 2 - PCV) 1983 Cervical Cancer Screening Pa p with HPV Testing (Age 30 to 64) Every 5 Years 1994 Cervical Cancer Screening with HPV 1994 Mammogram Screening 2004 Zoster Vaccines (1 of 2) 2014 COVID-19 Vaccine (1 - 2024-2 6 season) 2024 Influenza Adult (#1) 2025 DTaP, Tdap and Td Vaccines ( 2 - Tdap) 07/05/2026 07/05/2016 RSV Immunization or 60+ Years (1 - 1-dose 75+ series) 2039 Hepatitis A Vaccines Aged Out No long er eligible based on patient's age to complete this topic Meningococcal B Vaccine Aged Out No l onger eligible based on patient's age to complete this topic Meningococcal Vaccine Aged Out No mike joselyn eligible based on patient's age to complete this topic RSV Immunizations Under 20 Months Aged Out No longer eligible based on patient's age to complete this topic Insurance [employer] Care Teams Pipe Fittings Molder Relationship Specialty Start Date End Date Libertad Mason APRN [id number] [place] [address] PCP - General NURSE PRACTITIONER 07/21/22
--- NOTE | 2025-03-26 07:10 | WPDHPUPDATE1 ---
History and Physical Update Update Date/Time: 03/26/25 07:10 History and Physical has been reviewed, including an updated exam of the patient. There are NO changes in the patient's condition. Risks, benefits, and alternatives have been discussed and questions answered. Patient agrees to proceed with procedure.
[2025-03-26] MEDS: ACETAMINOPHEN 500 MG TABLET 1000 MG PO (12:45)
[2025-03-26] MEDS: LACTATED RINGERS 1,000 ML 30 ML IV CONT (12:45)
[2025-03-26] MEDS: KETOROLAC 15 MG/ML VIAL (*BKC) IV PUSH (12:45)
--- NOTE | 2025-03-26 13:15 | P.PNAN_ITS ---
Anes - Initial Pre Proc Eval Procedure: Operation Date: 03/26/25 13:30 Proposed Procedures p Left Knee Arthroscopy, with Loose Body Removal, Microfracture - Elia Buckley MD Date/Time: 03/26/25 13:15 Surgeon: Elia Buckley MD Pre Op Diagnosis: left knee loose body, chondral defect Patient Data Age: 59 Gender: F Height: 1.57 m Weight: 54.4 kg Last Vital Signs Temp 98.4 F 03/26/25 13:04 Pulse 80 03/26/25 13:04 BP 140/79 03/26/25 13:04 Pulse Ox 96 03/26/25 13:04 O2 Del Method Room Air 03/26/25 13:04 Allergies Allergy/AdvReac Type Severity Reaction Status Date / Time No Known Allergies Allergy Verified 03/23/25 09:30 Home Medications ?Medication ?Instructions ?Recorded ?Confirmed ?Type cholecalciferol (vitamin D3) 250 250 mcg PO 3XW 03/23/25 History mcg (10,000 unit) capsule omega-3 fatty acids-fish oil 360 1 cap PO DAILY 03/23/25 History mg-1,200 mg capsule (Fish Oil) vitamin K2 100 mcg capsule 200 mcg PO DAILY 01/14/25 1 05/24/24 History amlodipine 5 mg tablet 5 mg PO DAILY #90 tabs 02/0303/23/25 Rx hydrocodone 5 mg-acetaminophen 325 1 - 2 tablet PO Q4- 6H PRN pain 7 03/26/25 Rx mg tablet days #30 tabs Patient hx anesthesia problems: none Family hx anesthesia problems: none Results Review: All pre-operative results and documents have been reviewed as part of the pre- operative evaluation. FOR[facility]LY [facility], [facility] Past Medical History Medical History Osteopenia Essential (primary) hypertension Postmenopausal atrophic vaginitis Vitamin D deficiency Prediabetes Dyslipidemia Surgical History Surgical History History of vaginal delivery 1982 and 1984 History of tubal ligation (~1989) Family History Family History Mother Hypertension Family history of Alzheimer's disease Family history of dementia Grandparent Family history of cardiovascular disease Father Family history of malignant neoplasm Social History Social History Smoking packs per day: 0.75 Smoking cigarettes per day: 15.0 Years smoked: 24 Smoking pack-years: 18.00 Smoking status: Former smoker Tobacco type: cigarettes Smoking end date: 05/17/24 Additional smoking assessment comments: QUIT MAY 2024 Alcohol intake: current Drinks per week: 10 Alcohol use details: beer Substance use: never Substance use type: does not use Lack of Transportation: No Lack of Food: Never True Current Housing: I Have Housing Concerned About Future Housing: No Difficulty Paying Gas/Electric Bills: No Difficulty Paying for Meds: No Currently Unemployed: No Education: High School Diploma/GED Difficulty w/ Childcare or Family Care: No Living arrangements: with family Spiritual care concerns: No Anes - Eval Final PreProcedure Day of Procedure 03/26/25 13:15 Patient weight: normal Heart: regular rate and rhythm Lungs: clear to auscultation Airway: Mallampati scale class III Neurological: alert and oriented Last oral intake: >/= 8 hours ASA classification: III Emergent: no Anesthetic plan: proceed Anesthesia type and monitoring: general LMA and standard monitoring Results Review: All pre-operative results and documents have been reviewed as part of the pre- operative evaluation. Informed Consent: The patient's anesthetic plan and its attendant risks and benefits were discussed with the patient/family/POA. Questions were solicited and answers provided to the satisfaction of the patient/family/POA.
[2025-03-26] MEDS: ceFAZolin 2 GM in SODIUM CHLORIDE 0.9% IV 50 ML 100 ML IVPB (13:22)
[2025-03-26] MEDS: BUPIVACAINE/EPINEPHRINE 0.5% 50 ML VIAL 30 ML INFILTRATE (13:50)
--- NOTE | 2025-03-26 14:28 | P.OP_ITS ---
Procedure Note - Detailed Date of Procedure 03/26/25 Pre-op Diagnosis Left knee loose body, chondral defect medial femoral condyle. Post-op Diagnosis Same Procedure Performed Arthroscopic loose body removal left knee. The osteocartilaginous fragment measured 20 mm x 15 mm by 4 mm thick. Surgeon Elia Buckley MD Anesthesia General Findings Large loose body from the medial femoral condyle. Chronic appearing large osteochondral defect at the weight-bearing aspect of the medial femoral condyle laterally. The anteromedial portal was slightly enlarged to allow for removal of the defect. There was small less than 1 cm partial-thickness splitting in the undersurface of the posterior horn medial meniscus. No further treatment was required. Tibia cartilage showed grade 1 softening anteriorly. The ACL was intact. The lateral compartment was entirely normal. The patella showed grade 1 chondromalacia which was gently debrided. The trochlea was normal. No other abnormal findings throughout the knee. Description of Procedure The patient was identified and the surgical site confirmed and signed in the preoperative holding area. Antibiotics were started per protocol, and the patient was brought to the operative room and transferred to the OR table. A general anesthetic was administered. Supine position with the operative lower extremity position in the leg edward after placement of a well padded tourniquet. The leg support was lowered and the contralateral limb was supported with a soft bolster. The knee was prepped and draped in the usual sterile fashion. A time-out was performed. The portal sites were marked and infiltrated with 0.5% Marcaine 20 mL. The limb was exsanguinated and the tourniquet inflated to 300 mL Hg. Standard inferolateral and inferomedial portals were established. Inflow was obtained with the saline pump. The camera was introduced. Diagnostic inspection of the joint was accomplished. The loose body was floating in the medial femoral condyle defect from which it came. The large grasper was able to remove it in 1 piece. Measured approximately 2 cm x 1.5 cm by half a cm thick. Medial meniscus appeared normal, however with gentle probing there was a small splitting in the under surface posteriorly less than 1 cm in length and superficial. There was no instability. It was left in situ. The remaining aspects of the knee were essentially normal other than small amount chondromalacia in the anterior tibia medially and central small area partial- thickness fibrillation at the patella. Trochlea was normal. The arthroscopic instruments were removed. The tourniquet released and wounds closed with subcutaneous 4-0 Monocryl absorbable suture. Steri strips and a sterile dressing were applied. A light elastic wrap was placed. The patient was extubated and brought to the recovery room in stable condition. Estimated Blood Loss 5 Drains No Complications No immediate complications Condition Stable Disposition PACU [facility] Surgery - Charge Forward: Surgery [facility]
== END 2025-03-26 15:45 | disposition home or self-care (01) ==
PROVIDERS: PCP Family Medicine; Visit Provider Orthopaedic Surgery
PROC: (CPT 29870; principal; 2025-03-26 13:30)
DX: M23.42 Loose body in knee, left knee (principal); M22.42 Chondromalacia patellae, left knee; Z87.891 Personal history of nicotine dependence
CPT/HCPCS: 29874; J0690; A9270; J1100; J1885; J2003; J2250; J2405; J2704; J3010; J7120